=== PATIENT | male | born 1985 | race Two or more races ===

== ENCOUNTER 2017-08-07 03:19 | Emergency (ER) | payer SELFPAY ==
[~2017-08-07] VITALS: Ht 180.3 cm; Wt 82.0 kg
[2017-08-07] MEDS ORDERED: ACETAMINOPHEN 500MG TABLET PO ONE (11:30)
[2017-08-07] MEDS ORDERED: IBUPROFEN 600MG TABLET PO ONE (11:30)
[2017-08-07 11:49] VITALS: BP 132/83
== END 2017-08-07 11:50 | disposition home or self-care (01) ==
LOC: ER 04:05
DX: J03.90 Acute tonsillitis, unspecified (principal); F17.200 Nicotine dependence, unspecified, uncomplicated; Z98.890 Other specified postprocedural states; Z88.0 Allergy status to penicillin
CPT/HCPCS: 87070; 87430; 99284; Z7610